=== PATIENT | female | born 1965 ===

== ENCOUNTER 2017-11-06 09:45 | Inpatient (IN) | payer OTHER ==
[~2017-11-06] VITALS: Ht 152.4 cm; Wt 66.2 kg
[2017-11-06] MEDS ORDERED: [UNRECOGNIZED DRUG - OTHER] PO (13:53)
[2017-11-06] MEDS ORDERED: LIPITOR20 MG PO (13:54)
[2017-11-06] MEDS ORDERED: NEURONTIN300 MG PO (13:54)
[2017-11-06] MEDS ORDERED: CLONAZEPAM1 MG PO (13:54)
[2017-11-06] MEDS ORDERED: WELLBUTRIN XL300 MG PO (13:54)
[2017-11-06] MEDS ORDERED: ZANAFLEX2 MG PO (13:55)
[2017-11-06] MEDS ORDERED: CATAFLAN PO (13:55)
== END 2017-11-10 15:54 | DRG 455 ==
LOC: O/R 11-09 04:26 → PED 11-09 04:26 → SURG 11-09 07:00 → PED 11-09 11:28
PROVIDERS: Orthopaedic Surgery
PROC: 0RG20J1 Fusion of 2 or more Cervical Vertebral Joints with Synthetic Substitute, Posterior Approach, Posterior Column, Open Approach (ICD-10-PCS; 2017-11-09)
PROC: 0RT30ZZ Resection of Cervical Vertebral Disc, Open Approach (ICD-10-PCS; 2017-11-09)
PROC: 0RG20A0 Fusion of 2 or more Cervical Vertebral Joints with Interbody Fusion Device, Anterior Approach, Anterior Column, Open Approach (ICD-10-PCS; principal; 2017-11-09 07:00)
DX: M48.02 Spinal stenosis, cervical region (principal); M50.122 Cervical disc disorder at C5-C6 level with radiculopathy